=== PATIENT | male | born 1980 | race Caucasian/White ===

== ENCOUNTER → 2022-03-09 14:08 | Outpatient (CLI) | payer OTHER, SELFPAY ==
--- NOTE | 2022-03-09 14:10 | DI.RAD.S_ITS ---
PROCEDURE: XR KNEE RT 3V INDICATIONS: fall, R knee pain medial/with weight bearing TECHNIQUE: <3> views of the knee were acquired. COMPARISON: None. FINDINGS: Bones: No fractures or dislocations. No suspicious bony lesions. quadriceps insertional enthesophyte. Mild patellar tilt. Soft tissues: No joint effusion. No suspicious soft tissue calcifications. IMPRESSION: No acute radiographic abnormality. Mild patellar tilt could be seen with maltracking. Dictated by: Murray Tong M.D. on 03/09/2022 at 14:58 Approved by: Murray Tong M.D. on 03/09/2022 at 15:00
== END ==
PROVIDERS: Referring Provider Student in an Organized Health Care Education/Training Program; Visit Provider Student in an Organized Health Care Education/Training Program
DX: M25.561 Pain in right knee (principal)
CPT/HCPCS: 73562

== ENCOUNTER 2022-05-02 10:24 | Observation (INO) | payer OTHER, SELFPAY ==
[2022-05-02] VITALS (10 sets, daily range): BP systolic 116–153; BP diastolic 79–99; PULSE 58–82; RESP 16–22; TEMP 36.1–36.7; O2SAT 96–99; BMI 34.0; BMI 31.6
[2022-05-02 10:36] LABS: Appearance Urine UA CLEAR; Bilirubin Urine UA NEGATIVE (NEGATIVE); Color Urine UA YELLOW; Glucose Urine UA TRACE g/dL (Negative); Ketones Urine UA NEGATIVE (NEGATIVE); Leukocyte Esterase Urine UA TRACE (NEGATIVE); Nitrite Urine UA NEGATIVE (Negative); Occult Blood Urine UA NEGATIVE (Negative); Protein Urine UA TRACE (Negative); pH Urine UA 6.5 (4.5-8.0)
[2022-05-02] MEDS: SODIUM CHLORIDE 0.9% 1,000 ML 1000 ML IV (10:46)
[2022-05-02] MEDS: ONDANSETRON 4 MG/2 ML INJ IV (10:47)
[2022-05-02] MEDS: KETOROLAC 30 MG/ML VIAL 15 MG IV (10:47)
[2022-05-02 10:51] LABS: Add Manual Diff / Slide Review NO; Basophils Absolute Auto 0 /uL (0-100); Basophils Percent Auto 0.3 % (0-2); Eosinophils Absolute Auto 100 /uL (0-450); Eosinophils Percent Auto 0.9 % (2-4); Hematocrit 46.3 % (41-53); Hemoglobin 16.5 g/dL (13.5-17.5); Lymphocytes Absolute Auto 1200 /uL (1100-4500); Lymphocytes Percent Auto 11.7 % (25-40); Mean Corpuscular HGB Conc 35.6 % (30-36); Mean Corpuscular Volume 92.7 fL (80-100); Monocytes Absolute Auto 700 /uL (0-900); Monocytes Percent Auto 7.1 % (3-14); Neutrophils Absolute Auto 8300 /uL (1500-7000); Platelet Count 224 X10^3/uL (150-400); Red Blood Cell Count 4.99 X10^6/uL (4.5-5.9); Red Cell Distribution Width 12.9 % (11.6-14.8); White Blood Cell Count 10.4 X10^3/uL (4.5-11.0)
--- NOTE | 2022-05-02 10:54 | ED_ITS ---
HPI - Abdominal Pain General Chief Complaint: Abdominal Pain Stated Complaint: Shooting pain in right side- since 3am Time Seen by Provider: 05/02/22 10:40 Source: patient Mode of arrival: Ambulatory History of Present Illness HPI narrative: Patient is a 41-year-old male no prior history presenting today with right-sided flank pain. He says he woke up this morning with sudden pain. He was unable to get back to sleep for find comfortable position. He has felt nauseous. Not really radiating. He has no prior history of kidney stone however he seen his mom had kidney stones he thinks it might be that. No fever or chills. Related Data Home Medications Medication Instructions Recorded Confirmed No Known Home Medications 05/02/22 05/02/22 Allergies Allergy/AdvReac Type Severity Reaction Status Date / Time No Known Drug Allergies Allergy Verified 05/02/22 10:37 Review of Systems Review of Systems Narrative: GENERAL: Denies chills,fever HEENT: Denies throat pain RESPIRATORY: Denies dyspnea, cough, wheezing CARDIOVASCULAR: Denies chest pain, palpitations GASTROINTESTINAL: + nausea : See HPI MUSCULOSKELETAL: Denies extremity pain, injury SKIN: No rash, no laceration, no pruritus NEUROLOGIC: Denies weakness, dizziness, headache, numbness 9 point review of systems is negative except for those stated above and HPI Patient History Medical History Right knee pain Social History household members: none Smoking Status: Current every day smoker alcohol intake: current Smoking Status: Current every day smoker alcohol intake frequency: 3 or more drinks per day Substance Use Type: marijuana Exam Initial Vital Signs Initial Vital Signs: Vital Signs Temperature 98 F 05/02/22 10:34 Pulse Rate 82 05/02/22 10:34 Respiratory Rate 17 05/02/22 10:34 Blood Pressure 153/99 H 05/02/22 10:34 Pulse Oximetry 99 05/02/22 10:34 Oxygen Delivery Method 05/02/22 10:34 GENERAL: Alert pleasant 41-year-old male and in no acute distress. HEENT: Head atraumatic,EOMI, pupils reactive, face symmetric, moist mucous membranes CARDIOVASCULAR: Regular rate and rhythm without murmurs, rubs or gallops. RESPIRATORY: Breath sounds equal bilaterally, no wheezes rales or rhonchi. ABDOMEN: Soft, nontender. Normoactive bowel sounds all 4 quadrants. No guarding or rebound. Negative Franco sign no epigastric : Mild right CVA tenderness EXTREMITIES: Normal range of motion, no clubbing or edema. Neurovascularly intact NEUROLOGICAL: Alert and oriented x4.Normal gait and speech. SKIN: Warm, dry, no laceration, no petechiae, no rashes or lesions. Course Orders Ordered: ED Orders 05/02/22 10:30 Urinalysis and Microscopic Stat 05/02/22 10:40 Complete Blood Count AUTO DIFF Stat Comprehensive Metabolic Panel Stat Lipase Stat 05/02/22 11:03 CT kidney ureter bladder (KUB) Stat 05/02/22 12:00 COVID19 -Nasal RAPID/Pre-Proc Stat Acetaminophen (Acetaminophen 325 Mg Tablet) 650 mg PO Q6HR REPLACED BY [facility] Last Admin: 05/02/22 17:20 Dose: 650 mg Documented By: BT Hydromorphone HCl (Hydromorphone 0.5 Mg Inj) 0.5 mg IV Q4H PRN PRN Reason: Breakthrough pain only (8-10) Last Admin: 05/02/22 17:54 Dose: 0.5 mg Documented By: BT Sodium Chloride (Normal Saline 0.9%) 1,000 mls @ 100 mls/hr IV CONT REPLACED BY [facility] Last Admin: 05/02/22 14:02 Dose: 100 mls/hr Documented By: BT Piperacillin Sod/Tazobactam (Sod 3.375 gm/ Sodium Chloride) 100 mls @ 25 mls/hr IV Q8H REPLACED BY [facility] Ketorolac Tromethamine (Ketorolac 30 Mg/Ml Vial) 30 mg IV Q6H REPLACED BY [facility] Stop: 05/05/22 13:44 Last Admin: 05/02/22 14:24 Dose: Not Given Documented By: TLS Nicotine (Nicotine 21 Mg Patch) 21 mg TOP DAILY REPLACED BY [facility] Last Admin: 05/02/22 18:26 Dose: 21 mg Documented By: BT Oxycodone HCl (Oxycodone Ir 5 Mg Tablet) 5 mg PO Q4HR PRN PRN Reason: Pain, Moderate (4-6) Discontinued Medications Hydromorphone HCl (Hydromorphone 0.5 Mg Inj) 0.5 mg IV NOW ONE Stop: 05/02/22 13:33 Last Admin: 05/02/22 13:51 Dose: 0.5 mg Documented By: SHAGGY Sodium Chloride (Normal Saline 0.9%) 1,000 mls @ 1,000 mls/hr IV BOLUS ONE Stop: 05/02/22 11:38 Last Infusion: 05/02/22 12:36 Dose: 0 mls/hr Documented By: Admin: 05/02/22 10:46 Dose: 1,000 mls/hr Documented By: KATHY Piperacillin Sod/Tazobactam (Sod 4.5 gm/ Sodium Chloride) 100 mls @ 200 mls/hr IV NOW ONE Stop: 05/02/22 12:20 Last Infusion: 05/02/22 12:51 Dose: 0 mls/hr Documented By: Admin: 05/02/22 12:36 Dose: 200 mls/hr Documented By: PATRICK Ketorolac Tromethamine (Ketorolac 30 Mg/Ml Vial) 15 mg IV NOW ONE Stop: 05/02/22 10:40 Last Admin: 05/02/22 10:47 Dose: 15 mg Documented By: KATHY Morphine Sulfate (Morphine 2 Mg/Ml Inj) 2 mg IV NOW ONE Stop: 05/02/22 11:28 Last Admin: 05/02/22 11:35 Dose: 2 mg Documented By: PATRICK Ondansetron HCl (Ondansetron 4 Mg/2 Ml Inj) 4 mg IV NOW ONE Stop: 05/02/22 10:40 Last Admin: 05/02/22 10:47 Dose: 4 mg Documented By: KATHY Vital Signs Vital signs: Vital Signs - 8 hr 05/02/22 11:30 05/02/22 11:30 05/02/22 12:00 Pulse Rate 69 Blood Pressure 141/85 H 138/84 Pulse Oximetry 98 05/02/22 12:00 05/02/22 12:30 05/02/22 12:30 Pulse Rate 72 63 Blood Pressure 133/86 Pulse Oximetry 97 98 MDM - Abdominal Pain Lab Data Result diagrams: 05/02/22 10:40 05/02/22 10:40 Labs: Lab Results 05/02/22 05/02/22 05/02/22 Range/Units 10:30 10:40 10:40 WBC 10.4 (4.5-11.0) X10^3/uL RBC 4.99 (4.5-5.9) X10^6/uL Hgb 16.5 (13.5-17.5) g/dL Hct 46.3 (41-53) % MCV 92.7 (80-100) fL MCH 33.0 (26-34) PG MCHC 35.6 (30-36) % RDW 12.9 (11.6-14.8) % Plt Count 224 (150-400) X10^3/uL Neut % (Auto) 80.0 H (50-75) % Lymph % (Auto) 11.7 L (25-40) % [place] % (Auto) 7.1 (3-14) % Eos % (Auto) 0.9 L (2-4) % Baso % (Auto) 0.3 (0-2) % Neut # (Auto) 8300 H (4850-2385) /uL Lymph # (Auto) 1200 (9513-9346) /uL [place] # (Auto) 700 (0-900) /uL Eos # (Auto) 100 (0-450) /uL Baso # (Auto) 0 (0-100) /uL Sodium 139 (137-145) mmol/L Potassium 4.2 (3.4-5.1) mmol/L Chloride 105 (98-107) mmol/L Carbon Dioxide 23 (22-32) mmol/L BUN 14 (9-20) mg/dL Creatinine 0.86 (0.66-1.25) mg/dL Estimated GFR > 60 (>60) mL/min BUN/Creatinine Ratio 16.3 (6-22) Glucose 93 (70-100) mg/dL Calcium 9.1 (8.4-10.2) mg/dL Total Bilirubin 1.1 (0.2-1.3) mg/dL AST 47 (17-59) IU/L ALT 42 (<50) IU/L Alkaline Phosphatase 112 (38-126) U/L Total Protein 7.5 (6.3-8.2) g/dL Albumin 4.3 (3.5-5.0) g/dL Globulin 3.2 (1.7-4.1) g/dL Albumin/Globulin Ratio 1.3 (1.0-2.8) Lipase 120 (23-300) U/L Urine Color Yellow Urine Appearance Clear Urine pH 6.5 (4.5-8.0) Ur Specific [place] 1.020 (1.000-1.035) Urine Protein Trace H (Negative) Urine Glucose (UA) Trace H (Negative) g/dL Urine Ketones Negative (NEGATIVE) Urine Occult Blood Negative (Negative) Urine Nitrate Negative (Negative) Urine Bilirubin Negative (NEGATIVE) Urine Urobilinogen 1.0 (0.2) E.U./dL Ur Leukocyte Esterase Trace H (NEGATIVE) Urine RBC 0-1/hpf (0-5/HPF) Urine WBC None seen (0-5/HPF) Ur Squamous Epith Cells None seen (0-5/HPF) Urine Bacteria None seen (None) Urine Mucus 1+ H (Negative) Ur Culture Indicated? Cult not indicated SARS-CoV-2 (PCR) (Negative) 05/02/22 Range/Units 12:00 WBC (4.5-11.0) X10^3/uL RBC (4.5-5.9) X10^6/uL Hgb (13.5-17.5) g/dL Hct (41-53) % MCV (80-100) fL MCH (26-34) PG MCHC (30-36) % RDW (11.6-14.8) % Plt Count (150-400) X10^3/uL Neut % (Auto) (50-75) % Lymph % (Auto) (25-40) % [place] % (Auto) (3-14) % Eos % (Auto) (2-4) % Baso % (Auto) (0-2) % Neut # (Auto) (9551-5176) /uL Lymph # (Auto) (8157-4605) /uL [place] # (Auto) (0-900) /uL Eos # (Auto) (0-450) /uL Baso # (Auto) (0-100) /uL Sodium (137-145) mmol/L Potassium (3.4-5.1) mmol/L Chloride (98-107) mmol/L Carbon Dioxide (22-32) mmol/L BUN (9-20) mg/dL Creatinine (0.66-1.25) mg/dL Estimated GFR (>60) mL/min BUN/Creatinine Ratio (6-22) Glucose (70-100) mg/dL Calcium (8.4-10.2) mg/dL Total Bilirubin (0.2-1.3) mg/dL AST (17-59) IU/L ALT (<50) IU/L Alkaline Phosphatase (38-126) U/L Total Protein (6.3-8.2) g/dL Albumin (3.5-5.0) g/dL Globulin (1.7-4.1) g/dL Albumin/Globulin Ratio (1.0-2.8) Lipase (23-300) U/L Urine Color Urine Appearance Urine pH (4.5-8.0) Ur Specific [place] (1.000-1.035) Urine Protein (Negative) Urine Glucose (UA) (Negative) g/dL Urine Ketones (NEGATIVE) Urine Occult Blood (Negative) Urine Nitrate (Negative) Urine Bilirubin (NEGATIVE) Urine Urobilinogen (0.2) E.U./dL Ur Leukocyte Esterase (NEGATIVE) Urine RBC (0-5/HPF) Urine WBC (0-5/HPF) Ur Squamous Epith Cells (0-5/HPF) Urine Bacteria (None) Urine Mucus (Negative) Ur Culture Indicated? SARS-CoV-2 (PCR) Negative (Negative) Imaging Data CT scan - abdomen/pelvis: Radiologist's Impression: t: Cornelius Reynaga MR#: [id number] : 1980 Acct:[id number] Age/Sex: 41 / M Date of Service: 05/02/22 Loc: Accession Number: [id number] ?? Procedure: CT kidney ureter bladder (KUB) Ordering Provider: Reyna Daniel D.O. PROCEDURE:? CT KIDNEY URETER BLADDER (KUB) ? INDICATIONS:? right flank pain ? TECHNIQUE:? Axial sections were acquired from the lung bases to the pubic symphysis.? Coronal and sagittal reformats were performed.? For radiation dose reduction, the following was used: ?automated exposure control, adjustment of mA and/or kV according to patient size.? ? COMPARISON:? None. ? FINDINGS:? Image quality:? Excellent.? ? Lung bases:? Unremarkable.? ? Heart:? No significant findings. ? URINARY: Right Kidney: ? No stones or hydronephrosis.? Right Ureter:? No hydroureter.? ? Left Kidney: ? No stones or hydronephrosis. Left Ureter:? No hydroureter.? ? Bladder:? Normal wall thickness. No stones. ? ? ? ABDOMEN: Liver:? Unremarkable.? ? Gallbladder:? Unremarkable.? ? Biliary ducts:? Unremarkable.? ? Pancreas:? Unremarkable.? ? Spleen:? There is a splenic cyst seen posteriorly that measures water density and 5 cm.? The spleen itself demonstrates normal size. Adrenal Glands:? Unremarkable.? ? ? Stomach and Bowel:? The appendix is abnormal, measuring up to 1.3 cm.? Within the proximal appendix, high-density material can be seen, which is attributed to appendicoliths.? Moderate surrounding inflammatory change can be seen.? No free air can be seen.? No focal fluid collections are seen to suggest abscess. No dilated loops of small bowel are seen.? No significant colonic abnormality can be seen. Peritoneum:? No abnormal intraperitoneal fluid.? No free air.? ? Ventral Wall: ? No hernia.? Abdominal Nodes:? No enlarged retroperitoneal or mesenteric lymph nodes.? Vessels:? Aorta and inferior vena cava are normal in size.? ? PELVIS: Pelvic Organs:? Unremarkable.? ? Pelvic Nodes: Unremarkable. Miscellaneous: No inguinal hernias are seen. ? ? ? Bones:? At the L5-S1 level, there is moderate to severe disc space narrowing with associated endplate irregularity and sclerosis. Vacuum disc phenomenon is seen at this level.? Mild retrolisthesis is seen at this level.? At least moderate bilateral neural foraminal narrowing can be seen at this level.? Milder degenerative changes are seen elsewhere.? ? IMPRESSION:? ? Acute appendicitis, without findings of perforation or abscess. ? Appendicoliths are seen. ? Negative for kidney stones or obstructive uropathy. ? ? ? Incidental note is made of: Simple appearing splenic cyst Focal L5-S1 degenerative change ? Note: Case discussed by telephone with Dr. Daniel at 10:19 a.m. [place] time on May 02, 2022. ? Dictated by: Suleman Cervantes M.D. on 05/02/2022 at 10:16 ? ? Approved by: Suleman Cervantes M.D. on 05/02/2022 at 10:20 ? MDM Narrative Medical decision making narrative: Patient presents today with right-sided abdominal pain came on quite suddenly pain. Initially thought to have a kidney stone however he is found to have acute appendicitis. He has no leukocytosis he is afebrile. He is requiring a bit more pain medications. Dr. Avila surgery has been updated and accepts patient Discharge Plan Departure Patient Disposition: Admitted As Inpatient Clinical Impression: Acute appendicitis Admit Date/Time: 05/02/22 12:30 Admit Provider: Bruce Avila
--- NOTE | 2022-05-02 11:03 | DI.CT.S_ITS ---
PROCEDURE: CT KIDNEY URETER BLADDER (KUB) INDICATIONS: right flank pain TECHNIQUE: Axial sections were acquired from the lung bases to the pubic symphysis. Coronal and sagittal reformats were performed. For radiation dose reduction, the following was used: automated exposure control, adjustment of mA and/or kV according to patient size. COMPARISON: None. FINDINGS: Image quality: Excellent. Lung bases: Unremarkable. Heart: No significant findings. URINARY: Right Kidney: No stones or hydronephrosis. Right Ureter: No hydroureter. Left Kidney: No stones or hydronephrosis. Left Ureter: No hydroureter. Bladder: Normal wall thickness. No stones. ABDOMEN: Liver: Unremarkable. Gallbladder: Unremarkable. Biliary ducts: Unremarkable. Pancreas: Unremarkable. Spleen: There is a splenic cyst seen posteriorly that measures water density and 5 cm. The spleen itself demonstrates normal size. Adrenal Glands: Unremarkable. Stomach and Bowel: The appendix is abnormal, measuring up to 1.3 cm. Within the proximal appendix, high-density material can be seen, which is attributed to appendicoliths. Moderate surrounding inflammatory change can be seen. No free air can be seen. No focal fluid collections are seen to suggest abscess. No dilated loops of small bowel are seen. No significant colonic abnormality can be seen. Peritoneum: No abnormal intraperitoneal fluid. No free air. Ventral Wall: No hernia. Abdominal Nodes: No enlarged retroperitoneal or mesenteric lymph nodes. Vessels: Aorta and inferior vena cava are normal in size. PELVIS: Pelvic Organs: Unremarkable. Pelvic Nodes: Unremarkable. Miscellaneous: No inguinal hernias are seen. Bones: At the L5-S1 level, there is moderate to severe disc space narrowing with associated endplate irregularity and sclerosis. Vacuum disc phenomenon is seen at this level. Mild retrolisthesis is seen at this level. At least moderate bilateral neural foraminal narrowing can be seen at this level. Milder degenerative changes are seen elsewhere. IMPRESSION: Acute appendicitis, without findings of perforation or abscess. Appendicoliths are seen. Negative for kidney stones or obstructive uropathy. Incidental note is made of: Simple appearing splenic cyst Focal L5-S1 degenerative change Note: Case discussed by telephone with Dr. Daniel at 10:19 a.m. [place] time on May 02, 2022. Dictated by: Suleman Cervantes M.D. on 05/02/2022 at 10:16 Approved by: Suleman Cervantes M.D. on 05/02/2022 at 10:20
[2022-05-02 11:17] LABS: Alanine Aminotransferase 42 IU/L (<50); Albumin 4.3 g/dL (3.5-5.0); Albumin Globulin Ratio 1.3 (1.0-2.8); Alkaline Phosphatase 112 U/L (38-126); Aspartate Aminotransferase 47 IU/L (17-59); BUN Creatinine Ratio 16.3 (6-22); Bilirubin Total 1.1 mg/dL (0.2-1.3); Blood Urea Nitrogen 14 mg/dL (9-20); Calcium 9.1 mg/dL (8.4-10.2); Carbon Dioxide 23 mmol/L (22-32); Chloride 105 mmol/L (98-107); Estimated Glomerular Filt Rate > 60 mL/min (>60); Globulin 3.2 g/dL (1.7-4.1); Glucose 93 mg/dL (70-100); HEMOLYSIS < 15 (0-50); Lipase 120 U/L (23-300); Potassium 4.2 mmol/L (3.4-5.1); Sodium 139 mmol/L (137-145); Total Protein 7.5 g/dL (6.3-8.2)
[2022-05-02 11:22] LABS: Bacteria Urine None Seen; Culture Indicated Urine Cult Not Indicated; Mucus Urine 1+ (Negative); RBC Urine 0-1/HPF (0-5/HPF); Squamous Epithelial Cell Urine None Seen (0-5/HPF); WBC Urine None Seen (0-5/HPF)
[2022-05-02] MEDS: MORPHINE 2 MG/ML INJ IV (11:35)
[2022-05-02] MEDS: PIPERACILLIN/TAZO 4.5 GM in SODIUM CHLORIDE 0.9% 100 ML IV (12:36)
[2022-05-02 12:45] LABS: COVID19 -Nasal RAPID Negative (Negative)
[2022-05-02] MEDS: HYDROMORPHONE 0.5 MG INJ IV ×3 (13:51→22:16)
[2022-05-02] MEDS: SODIUM CHLORIDE 0.9% 1,000 ML 100 ML IV ×2 (14:02→22:22)
[2022-05-02] MEDS: ACETAMINOPHEN 325 MG TABLET 650 MG PO ×2 (17:20→23:45)
[2022-05-02] MEDS: NICOTINE 21 MG PATCH TOP (18:26)
--- NOTE | 2022-05-02 20:59 | P.HP_ITS ---
History of Present Illness History of Present Illness Date Patient Seen: 05/02/22 Time Patient Seen: 20:59 Chief complaint: Shooting pain in right side- since 3am Narrative: 41-year-old man admitted to the hospital with acute appendicitis. Over the course of the past 24 hours he developed severe abdominal pain primarily of the right lower quadrant. Presented to [facility] Emergency Room where he was evaluated. At admission WBC 10, CT abdomen pelvis demo nstrates acute appendicitis with fecalith no abscess. No prior abdominal surgeries. Pain has improved since admission with IV Zosyn. Patient History Medical History Right knee pain Family & Social History Social History: household members none Prior Living Arrangements House Safety & Behavioral: Feels Safe in Current Yes Environment Been Physically Hurt or No Threatened By a Person Tobacco & Substance use: Smoking Status Current every day smoker Smoking packs per day 1 alcohol intake current alcohol intake frequency 3 or more drinks per day Substance Use Type marijuana Meds Home Medications and Allergies Home Medications Medication Instructions Recorded Confirmed Type No Known Home Medications 05/02/22 05/02/22 History Allergies Allergy/AdvReac Type Severity Reaction Status Date / Time No Known Drug Allergies Allergy Verified 05/02/22 10:37 Exam Vital Signs (past 8 hours): - 05/02/22 13:08 05/02/22 17:41 05/02/22 20:13 Temperature 97.8 F 98.1 F 97.0 F L Pulse Rate 61 58 L 67 Respiratory Rate 16 22 16 Blood Pressure 138/86 133/87 116/79 Pulse Oximetry 99 98 97 Oxygen Flow Rate 0 0 Oxygen Delivery Method Room Air Oxygen Flow Rate 0 Narrative Exam Narrative: General adult male alert oriented shankar no acute distress Chest nonlabored respirations Abdomen tender right lower quadrant. No betzy peritonitis. Objective Labs Result Diagrams: 05/02/22 10:40 05/02/22 10:40 Labs: Laboratory Results - last 24 hr 05/02/22 05/02/22 05/02/22 10:30 10:40 10:40 WBC 10.4 RBC 4.99 Hgb 16.5 Hct 46.3 MCV 92.7 MCH 33.0 MCHC 35.6 RDW 12.9 Plt Count 224 Neut % (Auto) 80.0 H Lymph % (Auto) 11.7 L [place] % (Auto) 7.1 Eos % (Auto) 0.9 L Baso % (Auto) 0.3 Neut # (Auto) 8300 H Lymph # (Auto) 1200 [place] # (Auto) 700 Eos # (Auto) 100 Baso # (Auto) 0 Sodium 139 Potassium 4.2 Chloride 105 Carbon Dioxide 23 BUN 14 Creatinine 0.86 Estimated GFR > 60 BUN/Creatinine Ratio 16.3 Glucose 93 Calcium 9.1 Total Bilirubin 1.1 AST 47 ALT 42 Alkaline Phosphatase 112 Total Protein 7.5 Albumin 4.3 Globulin 3.2 Albumin/Globulin Ratio 1.3 Lipase 120 Urine Color Yellow Urine Appearance Clear Urine pH 6.5 Ur Specific [place] 1.020 Urine Protein Trace H Urine Glucose (UA) Trace H Urine Ketones Negative Urine Occult Blood Negative Urine Nitrate Negative Urine Bilirubin Negative Urine Urobilinogen 1.0 Ur Leukocyte Esterase Trace H Urine RBC 0-1/hpf Urine WBC None seen Ur Squamous Epith Cells None seen Urine Bacteria None seen Urine Mucus 1+ H Ur Culture Indicated? Cult not indicated SARS-CoV-2 (PCR) 05/02/22 12:00 WBC RBC Hgb Hct MCV MCH MCHC RDW Plt Count Neut % (Auto) Lymph % (Auto) [place] % (Auto) Eos % (Auto) Baso % (Auto) Neut # (Auto) Lymph # (Auto) [place] # (Auto) Eos # (Auto) Baso # (Auto) Sodium Potassium Chloride Carbon Dioxide BUN Creatinine Estimated GFR BUN/Creatinine Ratio Glucose Calcium Total Bilirubin AST ALT Alkaline Phosphatase Total Protein Albumin Globulin Albumin/Globulin Ratio Lipase Urine Color Urine Appearance Urine pH Ur Specific [place] Urine Protein Urine Glucose (UA) Urine Ketones Urine Occult Blood Urine Nitrate Urine Bilirubin Urine Urobilinogen Ur Leukocyte Esterase Urine RBC Urine WBC Ur Squamous Epith Cells Urine Bacteria Urine Mucus Ur Culture Indicated? SARS-CoV-2 (PCR) Negative Assessment & Plan Assessment and plan (1) Acute appendicitis: Status: Acute Assessment & Plan narrative: 41-year-old man with acute appendicitis. CT abdomen pelvis was reviewed demonstrates acute appendicitis with fecalith no abscess. We discussed management of appendicitis including both conservative therapy and appendectomy. Given the presence of fecalith he is at increased risk of disease recurrence and following discussion his preference is to proceed with appendectomy. Ovmac rview the operation was discussed with the patient. Operative risks including bleeding, infection, damage to surrounding structures, anesthetic complication and were discussed. His questions have been answered and he is in agreement with this plan. Laparoscopic appendectomy tomorrow with Dr. Quinteros -JAMES after midnight -Zosyn Time Spent With Patient Critical Care time: I spent a total of [] minutes of critical care time on this patient's care today; this time is exclusive of procedural time. Quality VTE Deep Vein Thrombosis/Pulmonary Embolism Present on Admission: No
[2022-05-02] MEDS: KETOROLAC 30 MG/ML VIAL IV (22:16)
[2022-05-02] MEDS: PIPERACILLIN/TAZO 3.375 GM in SODIUM CHLORIDE 0.9% 100 ML IV (22:22)
[2022-05-03] VITALS (13 sets, daily range): BP systolic 127–148; BP diastolic 77–96; PULSE 59–94; RESP 13–18; TEMP 35.8–36.8; O2SAT 94–99; BMI 31.6
--- NOTE | 2022-05-03 | PATH_ITS ---
[facility] Accession Number: [id number] . 01 Material submitted: . appendix - APPENDIX . 01 Diagnosis: Vermiform Appendix, Appendectomy: Acute transmural appendicitis and periappendicitis. Negative for neoplasia. MRV 05/05/2022 1648 Local . 01 Electronically signed: . Aisha Durand MD, Pathologist NPI- [id number] . 01 Gross description: . The specimen is received in formalin labeled with the patient's name and appendix, and consists of a vermiform appendix measuring 7.8 cm in length and averaging 0.9 cm in diameter with abad intact serosa with a small amount of adherent white material consistent with exudate. A moderate amount of attached mesoappendix is identified measuring up to 2.0 cm. The surgical margin is received closed with zena which are removed, and the margin is inked blue. Sectioning reveals a patent lumen filled with a small amount of brown semi-solid material and ranging from 0.1 to 0.3 cm in diameter. The couch are abad to haley and average 0.3 cm thick. No lesions are identified. [employer] sections to include one-half of the bisected distal tip, surgical margin, and cross-section are submitted in cassette A1. ([id number]) /MRV 05/04/2022 1232 Local . 01 Pathologist provided ICD-10: K35.80 . 01 CPT . 921620 Specimen Comment: A courtesy copy of this report has been sent to [phone] Performed at: [address] [facility] [address], [place], [place] [id number] MD Krzysztof Horan MD Phone: [phone]
[2022-05-03] MEDS: HYDROMORPHONE 0.5 MG INJ IV ×3 (03:34→12:35)
[2022-05-03] MEDS: KETOROLAC 30 MG/ML VIAL IV ×2 (03:35→11:14)
[2022-05-03] MEDS: PIPERACILLIN/TAZO 3.375 GM in SODIUM CHLORIDE 0.9% 100 ML IV ×2 (06:04→14:20)
[2022-05-03] MEDS: SODIUM CHLORIDE 0.9% 1,000 ML 100 ML IV ×2 (06:08→16:44)
[2022-05-03] MEDS: ACETAMINOPHEN 325 MG TABLET 650 MG PO ×3 (06:09→18:40)
[2022-05-03] MEDS: OXYCODONE IR 5 MG TABLET PO ×3 (08:03→15:52)
[2022-05-03] MEDS: LACTATED RINGERS 1,000 ML 120 ML IV (13:56)
--- NOTE | 2022-05-03 14:11 | SUR.OPER ---
Addendum entered by Isabelle Moeller R.N. 05/03/22 15:16: Left arm padded with gel pad at tucked at side. Original Note: Supine on padded OR bed, head on pillow, arms secured on padded arm boards at <90 degrees abduction, legs uncrossed, safety belt at thigh, tape over blanket over lower legs.
--- NOTE | 2022-05-03 14:37 | PM.PREOP ---
Pre-operative Note COVID-19 COVID-19 status: Negative Result date/Date tested (Pos, Neg/Pending): 05/02/22 Criteria for continued procedure: Expected advancement of disease process Interval Note History & Physical reviewed/Exam performed by Physician: Yes Changes to H&P: No
[2022-05-03] MEDS: BUPIVACAINE 0.5% W/ EPI (PF) 30 ML VIAL INJ (15:07)
--- NOTE | 2022-05-03 15:34 | CM.DANOTE ---
Patient is a 41 yo male who was admitted on 05/02/22 for Abd Pain. Pt has [place] for insurance and his PCP is not listed. EMR was reviewed. Per Surgeon, pt with acute appendicitis and plan is Lap Appe today. SW attempted bedside assessment but pt off the floor for surgical intervention. Per RN, pt independent in room with ambulation and steady gait. Pt lives in [place] independently and works in [employer] in [place] and drives and does not use DME for ambulation. Pt is hopeful to d/c home this evening via friend POV if medically stable after surgery. Plan: SW to follow for likely pt d/c home tonight vs tomorrow pending progress post surgery and any further identified needs. EARL Natarajan Discharge Planning/Care Management CM Discharge Assessment Start: 05/03/22 14:54 Freq: Status: Active Protocol: Document 05/03/22 14:54 BF (Rec: 05/03/22 15:33 BF [id number]) Discharge Planning Assessment Assigned Briquetting Machine Operator EARL Tyson DPOA/Assigned Designee Name none Advance Directives? No Advance Directives on File No History Provided By Patient,Medical Record Has Patient been admitted in last 30 No days? Prior Living Arrangements House Household Members none Type of transporation used prior to Drives own vehicle admit Independent with ADL's Yes Is patient alert and oriented? Yes Caregiver for Another No Barriers to Discharge No Discharge Plan Home Transportation Arrangement friend can transport at d/c Referrals Initiated None needed Review Status In Process Please Provide Date Initial DC 05/03/22 Assessment Was Performed Next Review Type Continued Stay Review
--- NOTE | 2022-05-03 15:34 | PM.OP.1 ---
Operative Date/Time/Diagnoses Date of procedure: 05/03/22 Time of procedure: 15:34 Pre-op diagnosis: Acute appendicitis Post-op diagnosis: same Procedure & Clinicians Procedure: Laparoscopic appendectomy Same procedure as scheduled: Yes Indications: Acute appendicitis Surgeon: Aisha Quinteros Click Yes if Unassisted: Yes Anesthesia Type: General Operative Notes Findings: Stage II suppurative appendicitis Closure Type: primary Specimen(s): other Prosthetic devices, grafts, tissues, transplants, or devices: Appendix Applied: drain(s) Estimated Blood Loss (mL): 5 Blood products transfused: none Procedure in detail: Preop diagnosis: Acute appendicitis Postop diagnosis: Same Operative procedure: Laparoscopic appendectomy Findings: Stage II suppurative appendicitis Anesthetic: General with ET tube intubation with local Procedure: Patient placed in a supine position. Prepped and draped in sterile fashion to expose his abdomen. Infraumbilical port site was placed using open technique a 12 mm port. Insufflation began all other ports were placed under direct vision including a 5 mm port in the suprapubic area and a 5 mm port in the left lateral abdomen. Appendix was identified lifted cephalad for exposure. Appendiceal mesentery was taken down with electrocautery and excellent hemostasis. I then used a HALLE stapling device to amputate the appendix at its base. The appendix was placed into an Endo-Catch bag and pulled it through the infraumbilical port site intact. I surveyed the abdomen for hemostasis. Removed all ports and began closure. Of note the abdomen was irrigated to a clear return. I then began our closure with interrupted 2-0 Vicryl for umbilical port site. Skin was closed with interrupted 4-0 Vicryl versus Steri-Strips along. I then placed Steri-Strips and sterile dressings. Patient was awakened, extubated, taken to recovery room in stable condition. Needle sponge count and instrument counts were correct. Blood loss: 25 mL Specimen: Appendix Complications: none Post-operative Condition: stable Disposition: PACU
--- NOTE | 2022-05-03 15:58 | SUR.PHASEI ---
Addendum entered by Divina Poole R.N. 05/03/22 16:08: 1608: Report given to CRISTINO Cardona using SBAR and time allowed for questions. Pt transported to room 219 via bed with this RN assist, bedside handoff complete. Original Note: 1558: Pt A&Ox4, reports pain as tolerable, VSS, dressings C/D/I and ready to transfer to room. Attempt to call report to floor, RN busy at this time, will return call when available. CRISTINO Murcia x [phone]
--- NOTE | 2022-05-03 17:48 | PC.NURSE ---
Addendum entered by Jessi Carroll R.N. 05/03/22 19:02: Pt requesting to discharge after ambulating, voiding and taking sips and bites and tolerating well. notified and cleared for discharge home this evening. He verbalizes understanding of medications, activity, s/sx of infection, as well as site care. He is escorted to lob where friends arrive in private vehicle to discharge patient home. Original Note: Pt is A&Ox 3, VSS, afebrile on RA. Pain is well controlled this a.m. with PRN and scheduled pain medications for a short period then he reports pain returns to 6-8/10. Pt is independent in the room with IV pole, IVF at 100 ml/hr this a.m. He is transported to PACU at approximately 1340 this afternoon and returns at 1645. He denies n/v, vss, afebrile on RA. He reports pain level at 1/10. Lap sites x3 with shadow drainage, intact.
== END 2022-05-03 18:42 | disposition home or self-care (01) ==
LOC: ED 11:46 → AC 12:52
PROVIDERS: Surgery; Admitting Provider Surgery; Emergency Provider Emergency Medicine; Referring Provider Emergency Medicine; Visit Provider Surgery
PROC: 0DTJ4ZZ Resection of Appendix, Percutaneous Endoscopic Approach (ICD-10-PCS; CPT 44970; principal; 2022-05-03 14:00)
DX: K35.80 Unspecified acute appendicitis (principal); F17.210 Nicotine dependence, cigarettes, uncomplicated
CPT/HCPCS: 44970; 36415; 74176; 80053; 81001; 83690; 85025; 87635; 96361; 96365; 96366; 96375; 96376; 99218; 99284; C9803; G0378; J1100; J1170; J1885; J2270; J2405; J2543; J2704

== ENCOUNTER → 2024-05-29 14:49 | Outpatient (CLI) | payer OTHER, SELFPAY ==
[2022-05-02 12:42] VITALS: BMI 31.6
--- NOTE | 2024-05-29 14:50 | DI.RAD.S_ITS ---
PROCEDURE: XR SHOULDER LT MIN 2V INDICATIONS: Left shoulder pain TECHNIQUE: 3 views of the shoulder were acquired. COMPARISON: None. FINDINGS: Bones: No fractures or dislocations. No suspicious bony lesions. Visualized ribs appear intact. Soft tissues: No suspicious soft tissue calcifications. IMPRESSION: No visualized acute fracture or dislocation. However, if clinical concern and/or pain persist, short interval imaging followup in 7-10 days is recommended, as occult injury cannot be definitively excluded. Dictated by: Moon Mcallister M.D. on 05/29/2024 at 15:22 Approved by: Moon Mcallister M.D. on 05/29/2024 at 15:22
== END ==
PROVIDERS: Referring Provider Physician Assistant Medical; Visit Provider Physician Assistant Medical
DX: M25.512 Pain in left shoulder (principal)
CPT/HCPCS: 73030